=== PATIENT | female | born 1985 | race Caucasian/White ===

== ENCOUNTER 2018-07-09 20:00 | Emergency (ER) | payer OTHER ==
[~2018-07-09] VITALS: Ht 175.3 cm; Wt 69.4 kg
[~2018-07-09 20:00] MED LIST: IBUP-1222 PO; IBUP-1223 PO; OXYC-302 PO; PREN1TAB60 PO
[2018-07-09] MEDS ORDERED: DOXY100T PO (20:16)
[2018-07-09] MEDS ORDERED: ACYC-114 PO (20:17)
[2018-07-09] MEDS ORDERED: KETOROLAC 30 MG/1 ML IM ONE (21:00)
[2018-07-09] MEDS ORDERED: PROCHLORPERAZINE 10MG TABLET PO ONE (21:00)
[2018-07-09] MEDS ORDERED: DIPHENHYDRAMINE 25 MG CAPSULE PO ONE (21:00)
[2018-07-09] MEDS ORDERED: ACETAMINOPHEN 325 MG TABLET PO ONE (21:00)
[2018-07-09] MEDS ORDERED: ACETAMINOPHEN 325 MG TABLET ONE (21:07)
[2018-07-09] MEDS ORDERED: DIPHENHYDRAMINE 25 MG CAPSULE ONE (21:07)
[2018-07-09] MEDS ORDERED: PROCHLORPERAZINE 10MG TABLET ONE (21:07)
[2018-07-09] MEDS ORDERED: KETOROLAC 30 MG/1 ML ONE (21:07)
[2018-07-09] MEDS ORDERED: ONDANSETRON ODT 4 MG ONE (21:08)
--- NOTE | 2018-07-09 21:15 | NUR ---
MEDS GIVEN PER ERP ORDER FOR 11/08 MIGRAINE SCHILLING. BP CUFF, PULSE OX PLACED, WARM BLANKET PROVIDED. CALL LIGHT WITHIN REACH, FRIEND AT BS.
--- NOTE | 2018-07-09 21:48 | NUR ---
REPORT REC AT THIS TIME
--- NOTE | 2018-07-09 21:49 | NUR ---
REPORT TO GRETEL TODD.
--- NOTE | 2018-07-09 21:52 | NUR ---
PT REPORTS THAT SHE IS FEELING BETTER AT THIS TIME, PAIN IS 4/10, PT REQUESTING LAB WORK TO CHECK IF SHE IS DEHYDRATED, CURRENTLY DRINKING PO FLUIDS WITH HR IN 70'S
[2018-07-09 22:49] VITALS: BP 98/60
== END 2018-07-09 22:51 | disposition home or self-care (01) ==
LOC: ED 21:15
DX: G43.909 Migraine, unspecified, not intractable, without status migrainosus (principal)
CPT/HCPCS: 96372; 99284; J1885; Q0163; Q0164